=== PATIENT | female | born 1965 | race Caucasian/White ===

== ENCOUNTER 2016-11-09 23:06 | Emergency (ER) | payer OTHER ==
[~2016-11-09] VITALS: Ht 167.6 cm; Wt 105.0 kg
[~2016-11-09 23:06] MED LIST: Z.0.NO CURRENT MEDS
[2016-11-09 23:08] VITALS: BP 159/90; PULSE 99; RESP 18; TEMP 99.1; O2SAT 97
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
[2016-11-09] MEDS ORDERED: SILVER SULFADIAZINE 1% CR 50 GM JAR TOPICAL ONE (23:30)
== END 2016-11-09 23:45 | disposition home or self-care (01) ==
LOC: NEPD 23:06
DX: T24.112A Burn of first degree of left thigh, initial encounter (principal); I10 Essential (primary) hypertension; W39.XXXA Discharge of firework, initial encounter
CPT/HCPCS: 99282

== ENCOUNTER 2017-05-26 16:55 | Observation (INO) | payer OTHER ==
[2017-05-26] VITALS (7 sets, daily range): BP systolic 107–168; BP diastolic 60–102; PULSE 67–99; RESP 15–20; TEMP 98.6; O2SAT 94–100
[~2017-05-26] VITALS: Ht 177.8 cm; Wt 118.0 kg
[~2017-05-26 16:55] MED LIST changes: +CITA10TA4 PO; +CITA20TA4 PO
[2017-05-26] MEDS ORDERED: SODIUM CHLORIDE 0.9% FLUSH 10 ML FLUSH IVF PRN (17:15)
[2017-05-26] MEDS ORDERED: MORPHINE SULFATE 2 MG/ML INJ IV PUSH ONE ×2 (17:15→22:15)
[2017-05-26] MEDS ORDERED: ASPIRIN 81 MG CHEW TAB PO ONE (17:15)
--- NOTE | 2017-05-26 17:18 | PD ---
HPI Chief Complaint: Back/ Neck Pain or Injury Time Seen by Provider: 17:12 Travel History International Travel<30 days: No Contact w/Intl Traveler<30days: No Traveled to known affect area: No History of Present Illness HPI 51-year-old female treated diabetes, hypertension, here for evaluation of mid upper back pain. Patient reports that the pain started yesterday while lying in bed, is sharp, constant, 7 out of 10, radiated to her chest and bilateral shoulders yesterday, worse with inspiration, no change with movements. Patient reports recent upper respiratory symptoms that resolved 3 days ago. She had a cough productive of yellowish mucus. No hemoptysis. No known history of cardiac disease. No history of DVT or PE. No family history of cardiac disease. She is a lifetime nonsmoker. No paresthesias or motor deficits. She had a left knee replacement performed in June of last year. No trauma. PFSH Past Medical History Asthma: Yes Cancer: No Diabetes: No Diminished Hearing: No Glaucoma: No Hepatitis: No Hiatal Hernia: No Hypertension: No Respiratory: Yes (ASTHMA) Thyroid Disease: No Menopausal: Yes : 9 Para: 7 : 2 Tubal Ligation: Yes Past Surgical History Abdominal Surgery: No Cardiac Surgery: No Ear Surgery: No Endocrine Surgery: No Eye Surgery: No Genitourinary Surgery: No Gynecologic Surgery: Yes (TUBAL LIGATION) Oral Surgery: No Pacemaker: No Thoracic Surgery: No Other Surgery: Yes Social History Alcohol Use: No Tobacco Use: No Substance Use: No Allergies-Medications (Allergen,Severity, Reaction): Coded Allergies: No Known Allergies (Verified Adverse Reaction, Unknown, 05/05/17) Reported Meds & Prescriptions Reported Meds & Active Scripts Active Reported Lisinopril 5 Mg Tab 5 Mg PO DAILY Hydrochlorothiazide 12.5 Mg Cap 12.5 Mg PO DAILY Janumet (Sitagliptin-Metformin) 50-1,000 Mg Tab 1 Tab PO DAILY Atorvastatin (Atorvastatin Calcium) 10 Mg Tab 10 Mg PO HS Review of Systems Except as stated in HPI: all other systems reviewed are Neg Physical Exam Narrative GENERAL: Well-developed, well-nourished, mild distress secondary to pain. SKIN: Focused skin assessment warm/dry. No rash. HEAD: Atraumatic. Normocephalic. EYES: Pupils equal and round. No scleral icterus. No injection or drainage. ENT: Mucous membranes pink and moist. NECK: Trachea midline. No JVD. CARDIOVASCULAR: Regular rate and rhythm. No murmur appreciated. Distal pulses brisk and equal bilaterally. RESPIRATORY: No accessory muscle use. Clear to auscultation. Breath sounds equal bilaterally. GASTROINTESTINAL: Abdomen soft, non-tender, nondistended. MUSCULOSKELETAL: No obvious deformities. No clubbing. No cyanosis. No edema. No midline vertebral step-off or tenderness. NEUROLOGICAL: Awake and alert. No obvious cranial nerve deficits. Motor grossly within normal limits. Normal speech. PSYCHIATRIC: Appropriate mood and affect; insight and judgment normal. Data Data Last Documented VS Vital Signs Date Time Temp Pulse Resp B/P (MAP) Pulse Ox O2 Delivery O2 Flow Rate FiO2 05/26/17 19:56 20 05/26/17 19:14 80 115/60 (78) 99 Nasal Cannula 2.00 05/26/17 16:56 98.6 Orders Orders Electrocardiogram (05/26/17 17:15) Ckmb (Isoenzyme) Profile (05/26/17 17:15) Complete Blood Count With Diff (05/26/17 17:15) Comprehensive Metabolic Panel (05/26/17 17:15) Magnesium (Mg) (05/26/17 17:15) Prothrombin Time / Inr (Pt) (05/26/17 17:15) Act Partial Throm Time (Ptt) (05/26/17 17:15) Troponin I (05/26/17 17:15) Chest, Single Ap (05/26/17 17:15) Ecg Monitoring (05/26/17 17:15) Bilateral Bp Monitoring (05/26/17 17:15) Iv Access Insert/Monitor (05/26/17 17:15) Oximetry (05/26/17 17:15) Aspirin Chew (Aspirin Chew) (05/26/17 17:15) Sodium Chloride 0.9% Flush (Ns Flush) (05/26/17 17:15) Ct Pulmonary Angiogram (05/26/17 17:15) Morphine Inj (Morphine Inj) (05/26/17 17:15) Nitroglycerin Sl (Nitrostat Sl) (05/26/17 17:30) Ct Thor Spine W/O Contrast (05/26/17 ) Ondansetron Inj (Zofran Inj) (05/26/17 18:15) Ondansetron Inj (Zofran Inj) (05/26/17 18:09) CKMB (05/26/17 17:38) CKMB% (05/26/17 17:38) Iohexol 350 Inj (Omnipaque 350 Inj) (05/26/17 20:09) Influenzae A/B Antigen (05/26/17 20:41) Morphine Inj (Morphine Inj) (05/26/17 22:15) Activity Bed Rest With Brp (05/26/17:18) Vital Signs (Adult) Q4H (05/26/17:18) Cardiac Rhythm .As Directed (05/26/17:18) Notify Dr: Other .PRN (05/26/17:18) Notify Parameters (05/26/17:18) Resp Oxygen Nasal Cannula (05/26/17 ) Ckmb (Isoenzyme) Profile (05/26/17:18) Ckmb (Isoenzyme) Profile (05/27/17 01:18) Troponin I (05/26/17:18) Troponin I (05/27/17 01:18) Electrocardiogram (05/26/17:18) Electrocardiogram (05/27/17 01:18) ^ Obtain (05/26/17:18) Sodium Chloride 0.9% Flush (Ns Flush) (05/26/17 22:30) Sodium Chloride 0.9% Flush (Ns Flush) (05/27/17 09:00) Tipping Machine Operator Automatic / Telemetry FUNMI.Q8H (05/26/17:18) Admit Order (Ed Use Only) (05/26/17 22:18) Labs Laboratory Tests Test 05/26/17 17:38 White Blood Count 3.4 TH/MM3 Red Blood Count 4.82 MIL/MM3 Hemoglobin 14.2 GM/DL Hematocrit 41.1 % Mean Corpuscular Volume 85.3 FL Mean Corpuscular Hemoglobin 29.4 PG Mean Corpuscular Hemoglobin Concent 34.4 % Red Cell Distribution Width 14.2 % Platelet Count 247 TH/MM3 Mean Platelet Volume 8.6 FL Neutrophils (%) (Auto) 37.3 % Lymphocytes (%) (Auto) 44.8 % Monocytes (%) (Auto) 13.2 % Eosinophils (%) (Auto) 4.0 % Basophils (%) (Auto) 0.7 % Neutrophils # (Auto) 1.3 TH/MM3 Lymphocytes # (Auto) 1.5 TH/MM3 Monocytes # (Auto) 0.4 TH/MM3 Eosinophils # (Auto) 0.1 TH/MM3 Basophils # (Auto) 0.0 TH/MM3 CBC Comment DIFF FINAL Differential Comment Prothrombin Time 10.2 SEC Prothromb Time International Ratio 1.0 RATIO Activated Partial Thromboplast Time 28.2 SEC Blood Urea Nitrogen 12 MG/DL Creatinine 0.89 MG/DL Random Glucose 155 MG/DL Total Protein 7.6 GM/DL Albumin 3.8 GM/DL Calcium Level 8.7 MG/DL Magnesium Level 2.4 MG/DL Alkaline Phosphatase 79 U/L Aspartate Amino Transf (AST/SGOT) 53 U/L Alanine Aminotransferase (ALT/SGPT) 60 U/L Total Bilirubin 0.9 MG/DL Sodium Level 138 MEQ/L Potassium Level 4.4 MEQ/L Chloride Level 102 MEQ/L Carbon Dioxide Level 26.8 MEQ/L Anion Gap 9 MEQ/L Estimat Glomerular Filtration Rate 66 ML/MIN Total Creatine Kinase 350 U/L Creatine Kinase MB 3.8 NG/ML Creatine Kinase MB % 1.1 % Troponin I LESS THAN 0.02 NG/ML MDM Medical Decision Making Medical Screen Exam Complete: Yes Emergency Medical Condition: Yes Interpretation(s) EKG: Sinus, rate 89, normal axis, normal intervals, no acute ischemic abnormality. Differential Diagnosis ACS, dissection, PE, pneumothorax, pericarditis, pneumonia, musculoskeletal pain , pleurisy Narrative Course Vital signs reviewed. CBC: WBC 3.4, hemoglobin 14.2, hematocrit 41.1, platelets 247, lymphocytes 44.8% CMP is remarkable for random glucose 155, AST 53, ALT 60, otherwise essentially unremarkable. Total CK 350, CK-MB is 3.8, CK-MB percent is 1.1%, troponin is less than 0.02. Chest x-ray: No acute disease. CT pulmonary angiogram: No acute disease. CT thoracic spine: No acute abnormality. Diffuse mild degenerative disc disease. Influenza is negative. Pain slightly improved with nitroglycerin and morphine. Pain may be musculoskeletal in nature, however it is not really worsened with movements. This could be a chest pain equivalent. Patient was given a full aspirin. She will be admitted to the chest pain center for further cardiac evaluation. She is amenable to this plan. Diagnosis Primary Impression: Chest pain Qualified Codes: R07.9 - Chest pain, unspecified Additional Impressions: Back pain Qualified Codes: M54.6 - Pain in thoracic spine Degenerative disc disease, thoracic Admitting Information Admitting Physician Requests: Pradeep Bryant MD May 26, 2017 17:18
--- NOTE | 2017-05-26 17:43 | RADRPT ---
EXAM DATE/TIME: 05/26/2017 17:18 [facility] COMPARISON: CHEST SINGLE AP, August 27, 2011, 20:47. INDICATIONS : Pain MEDICAL HISTORY : Diabetes mellitus type II. SURGICAL HISTORY : Total knee replacement, left. ENCOUNTER: Initial ACUITY: 2 days PAIN SCORE: 7/10 LOCATION: Bilateral chest posterior FINDINGS: A single view of the chest demonstrates the lungs to be symmetrically aerated without evidence of mas s, infiltrate or effusion. The cardiomediastinal contours are unremarkable. Osseous structures are intact. CONCLUSION: No acute disease. Herminio Patel MD on May 26, 2017 at 17:41 Board Certified Radiologist. This report was verified electronically.
[2017-05-26] MEDS ORDERED: HYDR12.57 PO (17:46)
[2017-05-26] MEDS ORDERED: ATOR10TA15 PO (17:46)
[2017-05-26] MEDS ORDERED: JANU50TA8 PO (17:46)
[2017-05-26] MEDS ORDERED: LISI-519 PO (17:46)
[2017-05-26 18:02] LABS: AUTOMATED NEUTROPHIL # 1.3 TH/MM3 (1.8-7.7); BASOPHIL % 0.7 % (0.0-2.0); EOSINOPHIL # 0.1 TH/MM3 (0-0.4); HEMATOCRIT 41.1 % (35.0-46.0); HEMOGLOBIN 14.2 GM/DL (11.6-15.3); LYMPH % 44.8 % (9.0-44.0); LYMPHOCYTE # 1.5 TH/MM3 (1.0-4.8); MEAN CELL VOLUME 85.3 FL (80.0-100.0); MEAN CORPUSCULAR HEMOGLOBIN 29.4 PG (27.0-34.0); MEAN CORPUSCULAR HGB CONC 34.4 % (32.0-36.0); MEAN PLATELET VOLUME 8.6 FL (7.0-11.0); MONO % 13.2 % (0.0-8.0); MONOCYTE # 0.4 TH/MM3 (0-0.9); NEUT % 37.3 % (16.0-70.0); PLATELET COUNT 247 TH/MM3 (150-450); RED BLOOD COUNT 4.82 MIL/MM3 (4.00-5.30); RED CELL DISTRIBUTION WIDTH 14.2 % (11.6-17.2); WHITE BLOOD COUNT 3.4 TH/MM3 (4.0-11.0)
[2017-05-26] MEDS: NITROGLYCERIN 0.4 MG SL 25 TABS/BTL SL SCH ×3 (18:05→18:12)
[2017-05-26] MEDS ORDERED: ONDANSETRON HCL 4 MG/2 ML VIAL ONE (18:09)
[2017-05-26 18:12] LABS: PROTHROMBIN TIME - PATIENT 10.2 SEC (9.8-11.6)
[2017-05-26] MEDS ORDERED: ONDANSETRON HCL 4 MG/2 ML VIAL IV PUSH ONE (18:15)
[2017-05-26 18:16] LABS: ALBUMIN 3.8 GM/DL (3.4-5.0); AST (GOT) 53 U/L (15-37); BICARBONATE 26.8 MEQ/L (21.0-32.0); BLOOD UREA NITROGEN 12 MG/DL (7-18); CALCIUM 8.7 MG/DL (8.5-10.1); CHLORIDE 102 MEQ/L (98-107); CREATININE 0.89 MG/DL (0.50-1.00); GLOMERULAR FILTRATION RATE 66 ML/MIN (>89); GLUCOSE,RANDOM 155 MG/DL (74-106); MAGNESIUM 2.4 MG/DL (1.5-2.5); SODIUM (NA) 138 MEQ/L (136-145)
[2017-05-26 18:20] LABS: ALKALINE PHOSPHATASE 79 U/L (45-117); ALT (GPT) 60 U/L (10-53); TOTAL BILIRUBIN ADULT 0.9 MG/DL (0.2-1.0); TOTAL PROTEIN 7.6 GM/DL (6.4-8.2); TROPONIN I LESS THAN 0.02 NG/ML (0.02-0.05)
[2017-05-26] MEDS ORDERED: IOHEXOL 350 MG/ML 10 ML VIAL (for RAD DIAG) IVCONTRAST ONE (20:09)
--- NOTE | 2017-05-26 20:25 | RADRPT ---
EXAM DATE/TIME: 05/26/2017 19:52 [facility] COMPARISON: No previous studies available for comparison. INDICATIONS : Upper back pain and cough for 2 days. IV CONTRAST: 75 cc Omnipaque 350 (iohexol) IV RADIATION DOSE: 11.10 CTDIvol (mGy) MEDICAL HISTORY : Hypertension. Diabetes. SURGICAL HISTORY : Tubal ligation. ENCOUNTER: Initial ACUITY: 2 days PAIN SCALE: 5/10 LOCATION: chest TECHNIQUE: Volumetric scanning of the chest was performed using a pulmonary embolism protocol MIP images were re constructed. Using automated exposure control and adjustment of the mA and/or kV according to patien t size, radiation dose was kept as low as reasonably achievable to obtain optimal diagnostic quality images. DICOM format image data is available electronically for review and comparison. Follow-up recommendations for detected pulmonary nodules are based at a minimum on nodule size and pa tient risk factors according to Fleischner Society Guidelines. FINDINGS: PULMONARY ARTERIES: No filling defects are seen in the pulmonary arteries through the segmental level. LUNGS: There is no consolidation or pneumothorax . No concerning pulmonary nodule is visualized. PLEURAE: There is no pleural thickening or pleural effusion. MEDIASTINUM: There is good visualization of the great vessels of the middle mediastinum. No evidence of mediastin al or hilar adenopathy/mass. MUSCULOSKELETAL: Within normal limits for patient age. MISCELLANEOUS: The visualized upper abdominal organs demonstrate no acute abnormality. CONCLUSION: No acute disease. Juan Silverio Jr., MD on May 26, 2017 at 20:21 Board Certified Radiologist. This report was verified electronically.
--- NOTE | 2017-05-26 20:33 | RADRPT ---
EXAM DATE/TIME: 05/26/2017 19:49 [facility] COMPARISON: No previous studies available for comparison. INDICATIONS : Upper back pain for 2 days. RADIATION DOSE: 30.66 CTDIvol (mGy) MEDICAL HISTORY : Hypertension. Diabetes. SURGICAL HISTORY : Tubal ligation. ENCOUNTER: Initial ACUITY: 2 days PAIN SCALE: 5/10 LOCATION: Thoracic spine. TECHNIQUE: Volumetric scanning of the thoracic spine was performed. Multiplanar reconstructions in the sagittal , coronal and oblique axial planes were performed. Using automated exposure control and adjustment o f the mA and/or kV according to patient size, radiation dose was kept as low as reasonably achievable to obtain optimal diagnostic quality images. DICOM format image data is available electronically f or review and comparison. FINDINGS: The vertebral bodies of the thoracic spine are in normal alignment without evidence of subluxation. Vertebral body height is maintained. No fractures are seen. There is diffuse mild disc space narrowi ng and mild anterior osteophyte production throughout the thoracic spine. T1-T2: Normal. T2-T3: The thecal sac has a normal diameter. No evidence of disc bulge or protrusion. T3-T4: The thecal sac has a normal diameter. No evidence of disc bulge or protrusion. T4-T5: The thecal sac has a normal diameter. No evidence of disc bulge or protrusion. T5-T6: The thecal sac has a normal diameter. No evidence of disc bulge or protrusion. T6-T7: The thecal sac has a normal diameter. No evidence of disc bulge or protrusion. T7-T8: The thecal sac has a normal diameter. No evidence of disc bulge or protrusion. T8-T9: The thecal sac has a normal diameter. No evidence of disc bulge or protrusion. T9-T10: The thecal sac has a normal diameter. No evidence of disc bulge or protrusion. T10-T11: The thecal sac has a normal diameter. No evidence of disc bulge or protrusion. T11-T12: The thecal sac has a normal diameter. No evidence of disc bulge or protrusion. T12-L1: The thecal sac has a normal diameter. No evidence of disc bulge or protrusion. CONCLUSION: 1. No acute abnormality. 2. Diffuse mild degenerative disc disease. Juan Silverio Jr., MD on May 26, 2017 at 20:29 Board Certified Radiologist. This report was verified electronically.
--- NOTE | 2017-05-26 21:58 | EKG ---
Date Performed: 05/26/2017 Time Performed: 17:40:09 PTAGE: 51 years EKG: Sinus rhythm POSSIBLE LEFT ATRIAL ENLARGEMENT BORDERLINE ECG Prior EKG has artifact and I cannot accurately justine re. PREVIOUS TRACING : 07/09/2013 11.57 DOCTOR: Dez Mendoza Interpretating Date/Time 05/26/2017 21:56:17
[2017-05-26] MEDS ORDERED: SODIUM CHLORIDE 0.9% FLUSH 10 ML FLUSH IV FLUSH PRN (22:30)
[2017-05-26 23:19] LABS: TROPONIN I LESS THAN 0.02 NG/ML (0.02-0.05)
[2017-05-27 02:12] LABS: TROPONIN I LESS THAN 0.02 NG/ML (0.02-0.05)
[2017-05-27 02:46] VITALS: PULSE 63
[2017-05-27 02:47] VITALS: BP 140/77; PULSE 62; RESP 18; TEMP 98.1; O2SAT 99
[2017-05-27] MEDS ORDERED: TEMAZEPAM 15 MG CAP PO PRN (03:45)
[2017-05-27 04:04] VITALS: PULSE 65
[2017-05-27] MEDS: MORPHINE SULFATE 2 MG/ML INJ IV PRN ×2 (04:11→10:08)
[2017-05-27 04:44] VITALS: BP 133/72; PULSE 63; RESP 16; TEMP 98; O2SAT 99
[2017-05-27 08:00] VITALS: BP 160/68; PULSE 71; RESP 18; TEMP 97.7; O2SAT 96
--- NOTE | 2017-05-27 08:54 | HHI.HP ---
HPI Service [employer]DER Primary Care Physician Unknown [place] [facility] was denied visit because she couldn't pay Chief Complaint BACK PAIN radiating to chest History of Present Illness 51 YO lady developed URI this week. Tuesday and Tuesday she had fever and chills along with diarrhea Tuesday and Tuesday. Tuesday she had nausea and vomiting. After vomiting she developed severe back pain that radiated around to her chest. She contacted her PCP and they instructed her to come to [facility] because she had no funds to pay (she offered to pay them after she received her [employer] pay). This pain has been constant since Tuesday, it is sharp, radiates to chest, was brought on by vomiting and relieved only with MS here in ED. Review of Systems Consitutional: COMPLAINS OF: Fever, Chills Musculoskeletal: COMPLAINS OF: Back pain Past Family Social History Allergies: Coded Allergies: No Known Allergies (Verified Adverse Reaction, Unknown, 05/26/17) Past Medical History Diabetes HTN UTI Asthma Past Surgical History Tubal Ligation Left Total Knee Jun Reported Medications Reported Meds & Active Scripts Active Reported Lisinopril 5 Mg Tab 5 Mg PO DAILY Hydrochlorothiazide 12.5 Mg Cap 12.5 Mg PO DAILY Janumet (Sitagliptin-Metformin) 50-1,000 Mg Tab 1 Tab PO DAILY Atorvastatin (Atorvastatin Calcium) 10 Mg Tab 10 Mg PO HS Active Ordered Medications Current Medications Medications (Trade) Dose Ordered Sig/Lo Route Start Time Stop Time Status Last Admin (NS Flush) 2 ml UNSCH PRN IV FLUSH 05/26/17 22:30 (NS Flush) 2 ml BID IV FLUSH 05/27/17 09:00 (Restoril) 15 mg HS PRN PO 05/27/17 03:45 (Morphine Inj) 2 mg Q4H PRN IV 05/27/17 03:45 05/27/17 04:11 Family History Non Contrib Social History Denies alcohol, tobacco or drugs Works at [employer] Physical Exam Vital Signs Vital Signs Date Time Temp Pulse Resp B/P (MAP) Pulse Ox O2 Delivery O2 Flow Rate FiO2 05/27/17 08:00 97.7 71 18 160/68 (98) 96 05/27/17 04:44 98.0 63 16 133/72 (92) 99 05/27/17 04:04 65 05/27/17 02:58 Nasal Cannula 2.00 1/19/18 02:47 98.1 62 18 140/77 (98) 99 05/27/17 02:46 63 05/27/17 01:00 99 Nasal Cannula 2.00 05/27/17 00:28 05/26/17 23:14 67 18 107/68 (81) 98 Nasal Cannula 2.00 05/26/17 19:56 20 05/26/17 19:15 18 05/26/17 19:14 80 15 115/60 (78) 99 Nasal Cannula 2.00 05/26/17 18:10 72 16 115/82 (93) 94 Room Air 05/26/17 18:05 86 16 112/71 (85) 99 Room Air 05/26/17 18:00 88 18 130/74 (92) 99 Room Air 05/26/17 17:35 100 Room Air 05/26/17 16:56 98.6 99 20 168/102 (124) 99 Room Air Laboratory Laboratory Tests Test 05/26/17 17:38 05/26/17 22:45 05/27/17 01:30 White Blood Count 3.4 Red Blood Count 4.82 Hemoglobin 14.2 Hematocrit 41.1 Mean Corpuscular Volume 85.3 Mean Corpuscular Hemoglobin 29.4 Mean Corpuscular Hemoglobin Concent 34.4 Red Cell Distribution Width 14.2 Platelet Count 247 Mean Platelet Volume 8.6 Neutrophils (%) (Auto) 37.3 Lymphocytes (%) (Auto) 44.8 Monocytes (%) (Auto) 13.2 Eosinophils (%) (Auto) 4.0 Basophils (%) (Auto) 0.7 Neutrophils # (Auto) 1.3 Lymphocytes # (Auto) 1.5 Monocytes # (Auto) 0.4 Eosinophils # (Auto) 0.1 Basophils # (Auto) 0.0 CBC Comment DIFF FINAL Differential Comment Prothrombin Time 10.2 Prothromb Time International Ratio 1.0 Activated Partial Thromboplast Time 28.2 Blood Urea Nitrogen 12 Creatinine 0.89 Random Glucose 155 Total Protein 7.6 Albumin 3.8 Calcium Level 8.7 Magnesium Level 2.4 Alkaline Phosphatase 79 Aspartate Amino Transf (AST/SGOT) 53 Alanine Aminotransferase (ALT/SGPT) 60 Total Bilirubin 0.9 Sodium Level 138 Potassium Level 4.4 Chloride Level 102 Carbon Dioxide Level 26.8 Anion Gap 9 Estimat Glomerular Filtration Rate 66 Total Creatine Kinase 350 236 224 Creatine Kinase MB 3.8 2.8 2.7 Creatine Kinase MB % 1.1 1.2 1.2 Troponin I LESS THAN 0.02 LESS THAN 0.02 LESS THAN 0.02 Date/Time Source Procedure Growth Status 05/26/17 21:00 Nasal Washing Influenza Types A,B Antigen (ALEX) - Final NEGATIVE FOR FLU A AND B ANTIGEN.... Complete Result Diagram: 05/26/17 1738 05/26/17 [address] ANGIO NEG CT SPINE MILD DJD NO ACUTE Course Neg for flu RO for acute spinal problem RO for ACS Only issue is trying to relieve back pain Caprini VTE Risk Assessment Caprini VTE Risk Assessment: No/Low Risk (score <= 1) Caprini Risk Assessment Model Point Value = 1 Point Value = 2 Point Value = 3 Point Value = 5 Age 41-60 Minor surgery BMI > 25 kg/m2 Swollen legs Varicose veins or History of unexplained or recurrent spontaneous Oral contraceptives or hormone replacement Sepsis (< 1 month) Serious lung disease, including pneumonia (< 1 month) Abnormal pulmonary function Acute myocardial infarction Congestive heart failure (< 1 month) History of inflammatory bowel disease Medical patient at bed rest Age 61-74 Arthroscopic surgery Major open surgery (> 45 min) Laparoscopic surgery (> 45 min) Malignancy Confined to bed (> 72 hours) Immobilizing plaster cast Central venous access Age >= 75 History of VTE Family history of VTE Factor V Leiden Prothrombin [id number] Lupus anticoagulant Anticardiolipin antibodies Elevated serum homocysteine Heparin-induced thrombocytopenia Other congenital or acquired thrombophilia Stroke (< 1 month) Elective arthroplasty Hip, pelvis, or leg fracture Acute spinal cord injury (< 1 month) Prophylaxis Regimen Total Risk Factor Score Risk Level Prophylaxis Regimen 0-1 Low Early ambulation 2 Moderate Order ONE of the following: *Sequential Compression Device (SCD) *Heparin 5000 units SQ BID 3-4 Higher Order ONE of the following medications: *Heparin 5000 units SQ TID *Enoxaparin/Lovenox 40 mg SQ daily (WT < 150 kg, CrCl > 30 mL/min) *Enoxaparin/Lovenox 30 mg SQ daily (WT < 150 kg, CrCl > 10-29 mL/min) *Enoxaparin/Lovenox 30 mg SQ BID (WT < 150 kg, CrCl > 30 mL/min) AND/OR *Sequential Compression Device (SCD) 5 or more Highest Order ONE of the following medications: *Heparin 5000 units SQ TID (Preferred with Epidurals) *Enoxaparin/Lovenox 40 mg SQ daily (WT < 150 kg, CrCl > 30 mL/min) *Enoxaparin/Lovenox 30 mg SQ daily (WT < 150 kg, CrCl > 10-29 mL/min) *Enoxaparin/Lovenox 30 mg SQ BID (WT < 150 kg, CrCl > 30 mL/min) AND *Sequential Compression Device (SCD) Assessment and Plan Problem List: (1) Back pain ICD Codes: M54.9 - Dorsalgia, unspecified Status: Acute Plan: Cold Packs TID Lortab to cover pain next 3 days then FU as OP Continue present OP medications (2) Chest pain ICD Codes: R07.9 - Chest pain, unspecified Status: Acute Plan: Has RO for ACS Not candidate for further stress testing due to ongoing back pain (3) Degenerative disc disease, thoracic ICD Codes: M51.34 - Other intervertebral disc degeneration, thoracic region Status: Acute Problem Qualifiers (1) Back pain: Qualified Codes: M54.6 - Pain in thoracic spine (2) Chest pain: Qualified Codes: R07.9 - Chest pain, unspecified Evans Streeter MD May 27, 2017 08:54
[2017-05-27] MEDS ORDERED: SODIUM CHLORIDE 0.9% FLUSH 10 ML FLUSH IV FLUSH SCH (09:00)
--- NOTE | 2017-05-27 09:07 | HHI.DCPOC ---
Discharge Care Plan Diagnosis: (1) Back pain (2) Chest pain (3) Degenerative disc disease, thoracic (4) Asthma (5) HTN (hypertension) (6) URI (upper respiratory infection) (7) Diabetes 1.5, managed as type 2 Goals to Promote Your Health * To prevent worsening of your condition and complications * To maintain your health at the optimal level Directions to Meet Your Goals Take your medications as prescribed Follow your dietary instruction Follow activity as directed Keep your appointments as scheduled Take your immunizations and boosters as scheduled If your symptoms worsen call your PCP, if no PCP go to Urgent Care Center or Emergency Room Smoking is Dangerous to Your Health. Avoid second hand smoke Call the 24-hour hour crisis hotline for domestic abuse at Evans Streeter MD May 27, 2017 09:07
[2017-05-27] MEDS ORDERED: HYDR1ELX PO (09:15)
[2017-05-27] MEDS ORDERED: HYDROCODONE PO PRN (10:15)
[2017-05-27] MEDS ORDERED: ACETAMINOPHEN PO PRN (10:15)
[2017-05-27 10:54] VITALS: O2SAT 98
--- NOTE | 2017-05-27 11:52 | EKG ---
Date Performed: 05/27/2017 Time Performed: 02:41:00 PTAGE: 51 years EKG: Sinus rhythm NORMAL ECG NO CHANGE PREVIOUS TRACING : 05/26/2017 22.42 DOCTOR: Evans Streeter Interpretating Date/Time 05/27/2017 11:50:38
--- NOTE | 2017-05-27 11:56 | EKG ---
Date Performed: 05/26/2017 Time Performed: 22:42:42 PTAGE: 51 years EKG: Sinus rhythm NORMAL ECG NO CHANGE PREVIOUS TRACING : 05/26/2017 17.40 DOCTOR: Evans Streeter Interpretating Date/Time 05/27/2017 11:55:29
[2017-05-27] MEDS ORDERED: ATORVASTATIN 10 MG TAB PO SCH (21:00)
[2017-05-28] MEDS ORDERED: LISINOPRIL 5 MG TAB PO SCH (09:00)
[2017-05-28] MEDS ORDERED: NON-FORMULARY DRUG (Sitagliptin-Metformin (Janumet) 1 TAB) PO SCH (09:00)
[2017-05-28] MEDS ORDERED: HYDROCHLOROTHIAZIDE 12.5 MG CAP PO SCH (09:00)
[2017-05-29] MEDS ORDERED: metFORMIN HCL 500 MG TAB PO SCH (09:00)
== END 2017-05-27 11:45 | disposition home or self-care (01) ==
LOC: NEPD 16:55 → NEDA 22:19 → NEPHCDU 05-27 01:47
PROVIDERS: ADMIT Internal Medicine Interventional Cardiology; ATTEND Internal Medicine Interventional Cardiology
DX: R07.9 Chest pain, unspecified (principal); I10 Essential (primary) hypertension; J06.9 Acute upper respiratory infection, unspecified; M51.34 Other intervertebral disc degeneration, thoracic region; R94.31 Abnormal electrocardiogram [ECG] [EKG]; J45.909 Unspecified asthma, uncomplicated; E11.9 Type 2 diabetes mellitus without complications; Z79.84 Long term (current) use of oral hypoglycemic drugs; Z96.652 Presence of left artificial knee joint
CPT/HCPCS: 71045; 71275; 72128; 80053; 82550; 82552; 83735; 84484; 85025; 85610; 85730; 87804; 93005; 96374; 96375; 96376; 99285; G0378; J2270; J2405; Q9967